=== PATIENT | male | born 1940 | race Caucasian/White ===

== ENCOUNTER → 2019-07-31 | Outpatient (CLI) | payer OTHER, BC ==
[~2019-07-31] MED LIST: AMBIEN 10 MG TA10 MG PO; ARTHRITIS PAIN650 M3 PO; ASA81BEC PO; ASPIRIN BUFFER325 MG PO; ASPIRIN EC325 M1 PO; ATORVASTATIN CA80 MG PO; CADUET 10 MG-81 EACH PO; CYMBALTA60 MG PO; FENOFIBRATE134 MG PO; FENTANYL PA12 MCG/HR TP; FENTANYL PA25 MCG/HR TRANSDERM; FENTANYL PA50 MCG/HR TRANSDERM; LEXAPRO 10 MG T10 MG PO; LOFIBRA160 MG PO; METFORMIN 500500 MG PO; MULTIPLE VITAM1 EAC1 PO; MULTIVITAMINS PO; MULTIVITAMINS1 EAC7 PO; NITROGLYCERIN0.4 MG SUBLING; NORVASC 2.5 MG2.5 M1 PO; PLAVIX 75 MG TA75 MG PO; PRINIVIL10 MG PO; PROAIR HFA8.5 GM INH; TRAMADOL 50 MG50 MG PO; VITAMIN D1000 UNI1 PO; VITAMIN D400 UNI1 PO
== END ==
LOC: SJCVCIMAG 10:23
DX: I11.9 Hypertensive heart disease without heart failure (principal); I70.8 Atherosclerosis of other arteries; I71.4 Abdominal aortic aneurysm, without rupture; R94.31 Abnormal electrocardiogram [ECG] [EKG]; I25.10 Atherosclerotic heart disease of native coronary artery without angina pectoris; I73.9 Peripheral vascular disease, unspecified; I65.23 Occlusion and stenosis of bilateral carotid arteries; J44.9 Chronic obstructive pulmonary disease, unspecified; E78.00 Pure hypercholesterolemia, unspecified; F17.210 Nicotine dependence, cigarettes, uncomplicated; Z90.49 Acquired absence of other specified parts of digestive tract; Z96.653 Presence of artificial knee joint, bilateral

== ENCOUNTER → 2019-08-03 | Outpatient (CLI) | payer OTHER, BC | LOC: LAB 09:13 → SJCVCIMAG 09:13 | PROVIDERS: Internal Medicine Cardiovascular Disease | DX: I71.4 Abdominal aortic aneurysm, without rupture (principal); I70.1 Atherosclerosis of renal artery; R91.8 Other nonspecific abnormal finding of lung field; I25.10 Atherosclerotic heart disease of native coronary artery without angina pectoris; I10 Essential (primary) hypertension; E78.5 Hyperlipidemia, unspecified; J44.9 Chronic obstructive pulmonary disease, unspecified; F17.200 Nicotine dependence, unspecified, uncomplicated; Z79.899 Other long term (current) drug therapy; Z79.82 Long term (current) use of aspirin ==

== ENCOUNTER 2019-08-17 10:44 | Inpatient (IN) | payer OTHER, BC ==
[~2019-08-17] VITALS: Ht 175.3 cm; Wt 65.0 kg
[2019-08-17] VITALS (8 sets, daily range): BP systolic 122–164; BP diastolic 69–103
[~2019-08-17 10:44] MED LIST changes: -ASA81BEC PO; -ATORVASTATIN CA80 MG PO; -MULTIVITAMINS1 EAC7 PO; -NORVASC 2.5 MG2.5 M1 PO
[2019-08-17 10:56] LABS: HEMATOCRIT 45.6 % (42.0-52.0); HEMOGLOBIN 15.2 gm/dL (14.0-18.0); MCH 31.6 pg (26.0-34.0); MCHC 33.3 g/dL (28.0-37.0); MCV 94.9 fL (80.0-100.0); RBC 4.8 mil/uL (4.50-6.00); RDW 12.5 % (10.5-14.5); WBC 6.6 thou/uL (4.0-11.0)
[2019-08-17 11:07] LABS: CALCIUM 8.9 mg/dL (8.5-10.1); POTASSIUM 3.6 mmol/L (3.5-5.1)
--- NOTE | 2019-08-17 11:20 | EKG ---
[facility] [place] [address] ELECTROCARDIOGRAM REPORT Name: NICHO SUAREZ Room #: REG [facility]#: [id number] Admission: 08/17/19 Attend Phys: Frank Galan MD, Discharge: Date of : 38 Report #: [id number] THIS REPORT FOR: cc: GENESIS - Vika family physician/PCP FAM - No family physician/PCP Danny Tovar MD ~ THIS REPORT FOR: //name// [facility] Test Date: 2019-08-17 Test Time: 10:41:29 Pat Name: NICHO SUAREZ Department: Room: Gender: Carton Machine Operator: Agatha MAY : 1940 Requested By: Frank Galan Order Number: [id number] MD: Danny Tovar Measurements Intervals [place] Rate: 64 P: -20 [place]: 170 QRS: 8 QRSD: 81 T: 128 QT: 399 QTc: 412 Interpretive Statements Sinus rhythm Nonspecific T abnrm, anterolateral leads Compared to ECG 01/06/2013 07:35:59 No significant changes Electronically Signed On 08-17-2019 11:19:38 [employer] MODEL MAKER by Danny Tovar [email or web address] <ELECTRONICALLY SIGNED> By: Danny Tovar MD 08/17/19 1119 1041 1041 Danny Tovar MD /EPI
[2019-08-17] MEDS ORDERED: NORVASC 2.5 MG2.5 M1 PO (15:04)
[2019-08-17] MEDS ORDERED: ASA81BEC PO (15:04)
[2019-08-17] MEDS ORDERED: ATORVASTATIN CA80 MG PO (15:05)
[2019-08-17] MEDS ORDERED: MULTIVITAMINS1 EAC7 PO (15:06)
--- NOTE | 2019-08-17 18:18 | NUR ---
PT. ARRIVED AT FLOOR AROUND 1430; PT. AOX4; RELATIVES AT THE BED SIDE; EDUCATED ABOUT BED REST FOR THE NEXT 3H; 1700; ST. UNDERSTANDING; R. 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 IS OBSERVATION; READY TO D/C AFTER BED REST; PT. NOTIFIED; PER PT. FAMILY CANNOT RETURNED TO PICK HIM UP; CONTACTED; PER CANNOT PICK HIM UP; CHEF TEACHER NOTIFIED; TRANSPORTATION PROVIDED; & PT. NOTIFIED; R. GROIN AREA NO HEMATOMA; EDUCATED ABOUT CARE; ST. UNDERSTANDING; D/C FROM FLOOR AROUND 1800; SB-SR ON THE MONITOR; ASSESSMENT CHARGED; FOLLOWED POC;
--- NOTE | 2019-08-17 18:18 | CATHLAB ---
[facility] [address] [place] [address] INVASIVE PROCEDURE REPORT Name: CASSIELUZ MARIANICHO FRANK Room #: 216-P ADM IN M.R.#: [id number] Admission: 08/17/19 Attend Phys: Frank Galan MD, Discharge: Date of : 38 Report #: [id number] THIS REPORT FOR: cc: FAM - No family physician/PCP FAM - No family physician/PCP Frank Galan MD [facility] ~ APPROVED REPORT Study performed: 08/17/2019 14:13:25 Patient Details The patient is a 79 year-old male Event Personnel Kiesha Starr, Donald Turner RTR Monitor, , Nikhil Cormier RTR Monitor, Dian Ferro RN RN, Frank Galan Senior Engineering Manager, Chon Lance Procedures Performed Left Heart Cath w/or w/o Coronaries [id number] [facility] [address] Initial Mod Sed Same Phys/QHP Gr 321773 50609 Mod Sed Same Phys/QHP Ea 509624 Hemostasis w/ Mynx Indication Chest pain Procedure Narrative A SHEATH BRITE-TIP 6F X 23CM ([id number]) sheath was inserted into the . Coronary angiography was performed using coronary diagnostic catheters. The right coronary system was accessed and visualized with a JR4 catheter. The left coronary system was accessed and visualized with a JL4 catheter. The left ventricle was accessed and visualized with a PIGTAIL catheter. Left ventriculogram was performed in 30 degree projection. Closure device was deployed with a 6 Fr MYNXGRIP 6/7F #[id number]. The patient tolerated the procedure well and there were no complications associated with the procedure. There was no hematoma. Intraoperative Conscious Sedation Sedation start time: 1305 Case end Time: 1345 Fentanyl 25 mcg Versed 1 mg Fluoro Time: 1.50 minutes [facility] [place] [address] INVASIVE PROCEDURE REPORT Name: NICHO SUAREZ Room #: 216-P [facility] IN .R.#: [id number] Admission: 08/17/19 Attend Phys: Frank Galan, Discharge: Date of : 38 Report #: [id number] Dose: DAP 3039.60 cGycm2 395 mGy Contrast Type and Amount: Omnipaque 55 ml Hemodynamics The aortic pressure is 160/68 mmHg with a mean of 108 mmHg. The left ventricular pressure is 138/6 mmHg with a mean of mmHg. The left ventricular end diastolic pressure is 12 mmHg. PCI Technique Lesion Percutaneous coronary intervention was performed on the Common iliac. PCI Technique Lesion 2 Percutaneous Coronary Intervention was performed on the Right Renal. Conclusion #1 left main with mild irregularities giving rise to LAD and circumflex #2 diffusely diseased LAD a type I stops short of the apex proximal calcification is noted. 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 Recommendations and plan: Continue aggressive risk factor modification no indication for coronary intervention. See Dr. Paulino peripheral intervention dictation. <ELECTRONICALLY SIGNED> By: Frank Galan MD, FACC 08/17/191816 16 16 Frank Galan MD, FACC /INF
== END 2019-08-17 18:27 | disposition home or self-care (01) | DRG 253 ==
LOC: CATH 10:44 → 2N 14:24 → CATH 15:28 → 2N 18:27
PROVIDERS: Internal Medicine Cardiovascular Disease; ADMIT Nuclear Medicine Nuclear Cardiology
PROC: 047J3DZ Dilation of Left External Iliac Artery with Intraluminal Device, Percutaneous Approach (ICD-10-PCS; principal; 2019-08-17)
PROC: B41D1ZZ Fluoroscopy of Aorta and Bilateral Lower Extremity Arteries using Low Osmolar Contrast (ICD-10-PCS; principal; 2019-08-17)
PROC: B4141ZZ Fluoroscopy of Superior Mesenteric Artery using Low Osmolar Contrast (ICD-10-PCS; principal; 2019-08-17)
PROC: 4A023N7 Measurement of Cardiac Sampling and Pressure, Left Heart, Percutaneous Approach (ICD-10-PCS; principal; 2019-08-17)
PROC: 047D3DZ Dilation of Left Common Iliac Artery with Intraluminal Device, Percutaneous Approach (ICD-10-PCS; principal; 2019-08-17)
PROC: B2111ZZ Fluoroscopy of Multiple Coronary Arteries using Low Osmolar Contrast (ICD-10-PCS; principal; 2019-08-17)
PROC: 04793DZ Dilation of Right Renal Artery with Intraluminal Device, Percutaneous Approach (ICD-10-PCS; principal; 2019-08-17)
PROC: B2151ZZ Fluoroscopy of Left Heart using Low Osmolar Contrast (ICD-10-PCS; principal; 2019-08-17)
PROC: B4181ZZ Fluoroscopy of Bilateral Renal Arteries using Low Osmolar Contrast (ICD-10-PCS; principal; 2019-08-17)
PROC: B4151ZZ Fluoroscopy of Inferior Mesenteric Artery using Low Osmolar Contrast (ICD-10-PCS; principal; 2019-08-17)
DX: I70.212 Atherosclerosis of native arteries of extremities with intermittent claudication, left leg (principal); K55.1 Chronic vascular disorders of intestine; I25.10 Atherosclerotic heart disease of native coronary artery without angina pectoris; E78.00 Pure hypercholesterolemia, unspecified; I71.4 Abdominal aortic aneurysm, without rupture; I10 Essential (primary) hypertension; I65.23 Occlusion and stenosis of bilateral carotid arteries; J44.9 Chronic obstructive pulmonary disease, unspecified; F17.210 Nicotine dependence, cigarettes, uncomplicated; Z95.5 Presence of coronary angioplasty implant and graft; Z95.828 Presence of other vascular implants and grafts; Z90.49 Acquired absence of other specified parts of digestive tract; Z79.899 Other long term (current) drug therapy; I70.1 Atherosclerosis of renal artery
CPT/HCPCS: 10081